=== PATIENT | female | born 1980 | race Caucasian/White ===

== ENCOUNTER 2018-09-13 08:10 | Inpatient (IN) | payer OTHER ==
[2018-09-13 08:13] VITALS: BMI 24.0
[2018-09-13] MEDS ORDERED: Sodium Chloride 0.9% 1,000 ML IV STA (08:26)
--- NOTE | 2018-09-13 08:33 | ED PDOC ---
HPI: Back Time Seen by Provider: 09/13/18 08:17 Chief Complaint (Nursing): Back Pain Chief Complaint (Provider): Abdominal Pain History Per: Patient History/Exam Limitations: no limitations Onset/Duration Of Symptoms: Days (x1) Current Symptoms Are (Timing): Still Present Additional Complaint(s): Parish Funes is a 38 year old female, with no significant PMHx, presenting for evaluation of sharp epigastric abdominal pain which radiates to the right shoulder since this morning. Patient denies any associated fevers, chills, vomiting, diarrhea, or urinary symptoms. Past Medical History Reviewed: Historical Data, Nursing Documentation, Vital Signs Vital Signs: Last Vital Signs Temp 98 F 09/13/18 08:13 Pulse 68 09/13/18 08:13 Resp 17 09/13/18 08:13 BP 121/76 09/13/18 08:13 Pulse Ox 100 09/13/18 08:13 - Medical History PMH: No Chronic Diseases - Surgical History Surgical History: No Surg Hx - Family History Family History: States: Unknown Family Hx - Home Medications Home Medications: Ambulatory Orders Medication Instructions Recorded No Known Home Med 09/13/18 - Allergies Allergies/Adverse Reactions: Allergies Allergy/AdvReac Type Severity Reaction Status Date / Time No Known Allergies Allergy Verified 09/13/18 08:19 Review of Systems ROS Statement: Except As Marked, All Systems Reviewed And Found Negative Constitutional: Negative for: Fever, Chills Gastrointestinal: Positive for: Abdominal Pain. Negative for: Nausea, Vomiting, Diarrhea Genitourinary Female: Negative for: Dysuria, Frequency, Incontinence, Hematuria Musculoskeletal: Positive for: Shoulder Pain Physical Exam - Reviewed Nursing Documentation Reviewed: Yes Vital Signs Reviewed: Yes - Physical Exam Appears: Positive for: Non-toxic, No Acute Distress Head Exam: Positive for: ATRAUMATIC, NORMAL INSPECTION, NORMOCEPHALIC Skin: Positive for: Normal Color, Warm, Dry. Negative for: Rash Eye Exam: Positive for: EOMI, Normal appearance, PERRL Neck: Positive for: Normal, Painless ROM, Supple Cardiovascular/Chest: Positive for: Regular Rate, Rhythm. Negative for: Murmur Respiratory: Positive for: Normal Breath Sounds. Negative for: Respiratory Di stress Gastrointestinal/Abdominal: Positive for: Soft, Tenderness (epigastric) Back: Positive for: Normal Inspection. Negative for: L CVA Tenderness, R CVA Tenderness, Vertebral Tenderness Extremity: Positive for: Normal ROM. Negative for: Pedal Edema, Deformity Neurologic/Psych: Positive for: Alert, Oriented. Negative for: Motor/Sensory Deficits - Laboratory Results Result Diagrams: 09/13/18 08:55 09/13/18 08:55 - ECG O2 Sat by Pulse Oximetry: 100 (RA) Pulse Ox Interpretation: Normal Medical Decision Making Medical Decision Making: Plan: Epigastric pain radiating to the right shoulder. Considering gastritis vs gallbladder disease vs pancreatitis. Will obtain labs and treat with IV fluids, Pepcid, and analgesics. Will consider gallbladder US pending labs. -EKG -CMP -Lipase -Upreg -CBC -Pepcid 20mg IVP -Morphine 2mg IVP -1L NS at 200 ml/hr -Reevaluation Time: 1003 [place] [address] abdomen to r/o gallstones, as well other pathologies related to pancreatitis. Will admit for NPO and pain management. -CT abdomen and pelvis w/ IV contrast -CXR -Morphine 4mg IVP -Admit to med/surg under the service of Dr. Rios Scribe Attestation: Documented by Jose Angel Lau, acting as a scribe for Roberto Esparza MD. Provider Scribe Attestation: All medical record entries made by the Scribe were at my direction and personally dictated by me. I have reviewed the chart and agree that the record accurately reflects my personal performance of the history, physical exam, medical decision making, and the department course for this patient. I have also personally directed, reviewed, and agree with the discharge instructions and disposition. Disposition - Clinical Impression Clinical Impression: Pancreatitis - Patient ED Disposition Is Patient to be Admitted: Yes - Disposition Disposition Time: 10:11 Condition: FAIR Forms: Eyelation (Thai) - Pt Status Changed To: Hospital Disposition Of: Inpatient - Admit Certification Admit to Inpatient:: After my assessment, the patient will require hospitaliza tion for at least two midnights. This is because of the severity of symptoms shown, intensity of services needed, and/or the medical risk in this patient being treated as an outpatient. - POA Present On Arrival: None
[2018-09-13] MEDS ORDERED: Morphine 4 MG/ML VIAL ONE ×2 (08:53→10:21)
[2018-09-13 09:05] LABS: BASO % 0.2 % (0.0-2.0); EOS # 0.1 K/uL (0.0-0.7); EOS % 0.8 % (0.0-4.0); LYMPH # 1.7 K/uL (1.0-4.3); LYMPH % 15.2 % (20.0-40.0); MEAN CELL VOLUME 77.5 fl (81.0-99.0); MEAN CORPUSCULAR HEMOGLOBIN 24.1 pg (27.0-31.0); MEAN CORPUSCULAR HGB CONC 31.1 g/dL (33.0-37.0); MEAN PLATELET VOLUME 8.3 fl (7.2-11.7); MONO # 0.6 K/uL (0.0-0.8); NEUT % 78.8 % (50.0-75.0); RBC 4.17 Mil/uL (3.80-5.20); RED CELL DISTRIBUTION WIDTH 15.7 % (11.5-14.5); WHITE BLOOD COUNT 11.5 K/uL (4.8-10.8)
[2018-09-13 09:14] LABS: ALB/GLOB RATIO 1.1 (1.0-2.1); ALBUMIN 3.9 g/dL (3.5-5.0); BLOOD UREA NITROGEN 12 mg/dl (7-17); CALCIUM 8.3 mg/dL (8.4-10.2); GFR NON-AFRICAN AMERICAN > 60
[2018-09-13 09:15] LABS: ALT/SGPT 24 U/L (9-52); AST/SGOT 40 U/L (14-36)
[2018-09-13 09:49] LABS: LIPASE 20792 U/L (23-300)
[2018-09-13] MEDS ORDERED: Iohexol 300 100 ML IJ ONE (10:17)
[2018-09-13] MEDS ORDERED: Sodium Chloride 0.9% 50 ML IV ONE (10:17)
[2018-09-13] MEDS: Lactated Ringer's 1,000 ML IV SCH ×4 (10:27→21:26)
[2018-09-13] MEDS ORDERED: Morphine 4 MG/ML VIAL IVP PRN (10:52)
[2018-09-13] MEDS ORDERED: Morphine 4 MG/ML VIAL IVP ONE (11:00)
--- NOTE | 2018-09-13 12:15 | RAD ---
Date of service: 09/13/2018 HISTORY: pancreatitis COMPARISON: 11/24/2010. FINDINGS: LUNGS: No active pulmonary disease. PLEURA: No significant pleural effusion identified, no pneumothorax apparent. CARDIOVASCULAR: No atherosclerotic calcification present Normal. OSSEOUS STRUCTURES: No significant abnormalities. VISUALIZED UPPER ABDOMEN: Normal. OTHER FINDINGS: None. IMPRESSION: No active disease. No significant interval change compared to the prior examination(s).
--- NOTE | 2018-09-13 12:26 | CT ---
Date of service: 09/13/2018 PROCEDURE: CT Abdomen and Pelvis with contrast HISTORY: Abdominal and back pain. COMPARISON: None. TECHNIQUE: Intravenous contrast dose: 95 cc Omnipaque 300. Radiation dose: Total exam DLP = 594.21 mGy-cm. Multiphasic study be foreign after administration of intravenous contrast. Coronal and sagittal reconstructed images. This CT exam was performed using one or more of the following dose reduction techniques: Automated exposure control, adjustment of the mA and/or kV according to patient size, and/or use of iterative reconstruction technique. FINDINGS: LOWER THORAX: Unremarkable. LIVER: Unremarkable. No gross lesion or ductal dilatation. GALLBLADDER AND BILE DUCTS: Unremarkable. PANCREAS: Diffuse edematous changes in the pancreas with peripancreatic fluid and inflammatory change. No evidence of necrotizing pancreatitis. No visible phlegmon. No identifiable gallstones or common duct stones. SPLEEN: Unremarkable. ADRENALS: Unremarkable. No mass. KIDNEYS AND URETERS: Unremarkable. No hydronephrosis. No solid mass. Incidental finding(s): Left renal cyst VASCULATURE: Unremarkable. No aortic aneurysm. No atherosclerotic calcification or mural plaque present. BOWEL: Constipation without fecal impaction or obstruction. APPENDIX: No abnormalities to suggest acute appendicitis. No right lower quadrant inflammatory processes identified. PERITONEUM: Trace pelvic fluid. Fluid in the retroperitoneum adjacent to the pancreas, right upper quadrant and outlining the anterior aspect of the right kidney. LYMPH NODES: Unremarkable. No enlarged lymph nodes. BLADDER: Unremarkable. REPRODUCTIVE: Unremarkable uterus. Deformed cyst left adnexa with contrast-enhancing characteristics of recently ruptured adnexal cyst. Trace free fluid identified in the pelvis/cul de sac. BONES: No acute fracture. OTHER FINDINGS: None. IMPRESSION: Diffuse/acute pancreatitis. No evidence of necrotizing pancreatitis. Additional benign and/or incidental findings described above. Communication of results: I discussed findings with the attending physician in the emergency department .
--- NOTE | 2018-09-13 12:45 | CP.PCM.HP ---
History of Present Illness - History of Present Illness History of Present Illness: 38 yo F with no significant medical history, admitted due to acute pancreatitis. She states pain started yesterday in epigastric region, and radiated to back and right shoulder. She took motrin overnight, but did not get much relief. No nausea, no vomiting, no chest pain or trouble breathing. States pain is sharp, and radiates to back and low abdomen, LLQ> RLQ. Med hx: none Surg hx: 1 , 2010 Fam hx: noncontributory Social hx: denies tobacco, drugs, alcohol use. 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 No evidence of necrotizing pancreatitis. Additional findings: Deformed cyst left adnexa with contrast enhancing characteristics of recently ruptured adnexal cyst. Trace free fluid identified in pelvis/cul de sac. Present on Admission - Present on Admission Any Indicators Present on Admission: No Review of Systems - Review of Systems All systems: reviewed and no additional remarkable complaints except Review of Systems: as per hpi Past Patient History - Past Social History Smoking Status: Never Smoked Alcohol: None Drugs: Denies - CARDIAC Hx Cardiac Disorders: No - PULMONARY Hx Respiratory Disorders: No - NEUROLOGICAL Hx Neurological Disorder: No - HEENT Hx HEENT Problems: No - RENAL Hx Chronic Kidney Disease: No - ENDOCRINE/METABOLIC Hx Endocrine Disorders: No - HEMATOLOGICAL/ONCOLOGICAL Hx Blood Disorders: No - INTEGUMENTARY Hx Dermatological Problems: No - MUSCULOSKELETAL/RHEUMATOLOGICAL Hx Musculoskeletal Disorders: No - GASTROINTESTINAL Hx Gastrointestinal Disorders: No - GENITOURINARY/GYNECOLOGICAL Hx Genitourinary Disorders: No - PSYCHIATRIC Hx Psychophysiologic Disorder: No Hx Substance Use: No - SURGICAL HISTORY Hx Surgeries: Yes Hx Section: Yes (X1) - ANESTHESIA Hx Anesthesia: Yes Hx Anesthesia Reactions: No Hx Malignant Hyperthermia: No Meds Allergies/Adverse Reactions: Allergies Allergy/AdvReac Type Severity Reaction Status Date / Time No Known Allergies Allergy Verified 09/13/18 08:19 Physical Exam - Constitutional Appears: No Acute Distress Additional comments: uncomfortable - Head Exam Head Exam: NORMAL INSPECTION - Eye Exam Eye Exam: Normal appearance. absent: Scleral icterus - ENT Exam ENT Exam: Mucous Membranes Moist - Respiratory Exam Respiratory Exam: Clear to Auscultation Bilateral, NORMAL BREATHING PATTERN. absent: Respiratory Distress - Cardiovascular Exam Cardiovascular Exam: REGULAR RHYTHM, +S1, +S2 - GI/Abdominal Exam GI & Abdominal Exam: Normal Bowel Sounds, Soft, Tenderness (epigastric, LLQ) Additional comments: no ecchymoses on flanks no periumbilical ecchymosis - Extremities Exam Extremities exam: Positive for: normal inspection. Negative for: calf tenderness - Back Exam Back exam: NORMAL INSPECTION. absent: CVA tenderness (L), CVA tenderness (R) - Neurological Exam Neurological exam: Alert - Psychiatric Exam Psychiatric exam: Normal Mood - Skin Skin Exam: Dry, Warm Results - Vital Signs Recent Vital Signs: Last Vital Signs Temp 98 F 09/13/18 08:13 Pulse 68 09/13/18 08:13 Resp 17 09/13/18 08:13 BP 121/76 09/13/18 08:13 Pulse Ox 100 09/13/18 10:11 - Labs Result Diagrams: 09/13/18 08:55 09/13/18 08:55 Labs: Laboratory Results - last 24 hr 09/13/18 09/13/18 08:55 08:55 WBC 11.5 H RBC 4.17 Hgb 10.0 L Hct 32.3 L MCV 77.5 L MCH 24.1 L MCHC 31.1 L RDW 15.7 H Plt Count 235 MPV 8.3 Neut % (Auto) 78.8 H Lymph % (Auto) 15.2 L [place] % (Auto) 5.0 Eos % (Auto) 0.8 Baso % (Auto) 0.2 Neut # (Auto) 9.0 H Lymph # (Auto) 1.7 [place] # (Auto) 0.6 Eos # (Auto) 0.1 Baso # (Auto) 0.0 Sodium 135 Potassium 4.2 Chloride 105 Carbon Dioxide 21 L Anion Gap 13 BUN 12 Creatinine 0.6 L Est GFR ( Amer) > 60 Est GFR (Non-Af Amer) > 60 Random Glucose 104 Calcium 8.3 L Total Bilirubin 0.7 AST 40 H ALT 24 Alkaline Phosphatase 112 Total Protein 7.5 Albumin 3.9 Globulin 3.6 Albumin/Globulin Ratio 1.1 Lipase 99848 H Assessment & Plan (1) Acute pancreatitis Status: Acute (2) Adnexal cyst Status: Acute - Assessment and Plan (Free Text) Plan: - Admitted to med surg - LR @ 250ml/hr - NPO - Pain control- morphine 2 mg Q4 PRN, 4 mg Q6 PRN - Lipid panel ordered - 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 Rhoades.
[2018-09-13 13:26] LABS: HDL CHOLESTEROL 47 MG/DL (30-70)
[2018-09-13 13:37] LABS: LDL CHOLESTEROL 120 mg/dL (0-129)
[2018-09-13] MEDS: Morphine 4 MG/ML VIAL IVP PRN (14:25)
--- NOTE | 2018-09-13 16:10 | US ---
Date of service: 09/13/2018 HISTORY: as per SUPPORT ASSOCIATE, f/u CT findings from 09/13 COMPARISON: CT abdomen and pelvis performed earlier the same day. TECHNIQUE: Transvaginal pelvic ultrasound was performed. FINDINGS: UTERUS: Measures 7.5 x 6.9 x 4.3 cm. Anteverted, normal in size and appearance. No fibroid or other mass lesion seen. ENDOMETRIUM: Measures 8.1 mm in diameter. Unremarkable. CERVIX: No cervical abnormality identified. RIGHT OVARY: Measures 4.5 x 2.2 x 1.7 cm. No solid mass. Normal flow. LEFT OVARY: Measures 3.4 x 3.3 x 2.9 cm. No solid mass. Normal flow. There is a 1.5 x 2.0 x 1.5 cm convoluted complicated cyst. FREE FLUID: There is a small amount of fluid in the cul de sac. OTHER FINDINGS: None. IMPRESSION: Convoluted in complicated cyst in the left ovary and free fluid in the cul de sac likely related to recent rupture of the cyst.
--- NOTE | 2018-09-13 19:39 | CARD ---
APPROVED REPORT Date of service: 09/13/2018 EKG Measurement Heart [id number] <Conclusion> Normal sinus rhythm with sinus arrhythmia Normal ECG
[2018-09-14] MEDS: Lactated Ringer's 1,000 ML IV SCH ×5 (01:51→22:00)
[2018-09-14] MEDS: Morphine 4 MG/ML VIAL IVP PRN (01:52)
[2018-09-14 06:30] LABS: BASO % 0.2 % (0.0-2.0); EOS % 0.5 % (0.0-4.0); HEMOGLOBIN 9.4 g/dL (12.0-16.0); LYMPH # 1.5 K/uL (1.0-4.3); LYMPH % 16.4 % (20.0-40.0); MEAN CELL VOLUME 78.5 fl (81.0-99.0); MEAN CORPUSCULAR HEMOGLOBIN 24.6 pg (27.0-31.0); MEAN CORPUSCULAR HGB CONC 31.3 g/dL (33.0-37.0); MEAN PLATELET VOLUME 8.3 fl (7.2-11.7); MONO # 0.6 K/uL (0.0-0.8); MONO % 6.6 % (0.0-10.0); NEUT % 76.3 % (50.0-75.0); RBC 3.84 Mil/uL (3.80-5.20); RED CELL DISTRIBUTION WIDTH 15.5 % (11.5-14.5); WHITE BLOOD COUNT 9.1 K/uL (4.8-10.8)
[2018-09-14 06:55] LABS: ALB/GLOB RATIO 1.1 (1.0-2.1); ALBUMIN 3.4 g/dL (3.5-5.0); ALT/SGPT 14 U/L (9-52); AST/SGOT 17 U/L (14-36); BLOOD UREA NITROGEN 6 mg/dl (7-17); CALCIUM 8.7 mg/dL (8.4-10.2); GFR NON-AFRICAN AMERICAN > 60
[2018-09-14 10:54] LABS: LIPASE 7697 U/L (23-300)
--- NOTE | 2018-09-14 12:33 | US ---
Date of service: 09/14/2018 HISTORY: pancreatitis COMPARISON: None. TECHNIQUE: Sonographic evaluation of the abdomen. FINDINGS: LIVER: Measures 16.9 cm. Normal echogenicity of the liver parenchyma. No mass. No intrahepatic bile duct dilatation. GALLBLADDER: Unremarkable. No gallstones. COMMON BILE DUCT: Measures 4 mm. No stones. No dilatation. PANCREAS: Unremarkable as visualized. No mass. No ductal dilatation. RIGHT KIDNEY: Measures 9.8cm. Normal echogenicity. No calculus, mass, or hydronephrosis. LEFT KIDNEY: Measures 10.1cm. Normal echogenicity. No calculus or hydronephrosis. Upper pole simple cortical cyst, 1.4 x 1.4 x 1.6 cm. No solid mass. SPLEEN: Normal in size and contour. No mass. AORTA: No aneurysmal dilatation. IVC: Unremarkable. OTHER FINDINGS: None. IMPRESSION: 1.6 cm left upper pole renal cortical cyst. Otherwise unremarkable examination. No sonographic evidence of acute pancreatitis.
--- NOTE | 2018-09-14 13:00 | CP.PCM.PN ---
Subjective - Date & Time of Evaluation Date of Evaluation: 09/14/18 Time of Evaluation: 10:20 - Subjective Subjective: Pt seen/eval at bedside with Dr. Rhoades. No acute events overnights, still has been NPO. Pain has subsided, alleviated with medication. at bedside. Objective - Vital Signs/Intake and Output Vital Signs (last 24 hours): Temp Pulse Resp BP Pulse Ox 99.4 F 81 19 111/71 98 09/14/18 07:59 09/14/18 07:59 09/14/18 07:59 09/14/18 07:59 09/14/18 07:59 - Medications Medications: Current Medications Lactated Ringer's (Lactated Ringer's) 1,000 mls @ 200 mls/hr IV .Q5H [facility] Last Admin: 09/14/18 07:17 Dose: 200 mls/hr Morphine Sulfate (Morphine) 2 mg IVP Q4 PRN PRN Reason: Pain, moderate (4-7) Last Admin: 09/14/18 01:52 Dose: 2 mg Morphine Sulfate (Morphine) 4 mg IVP Q6 PRN PRN Reason: Pain, severe (8-10) Ondansetron HCl (Zofran Inj) 4 mg IVP Q6 PRN PRN Reason: Nausea/Vomiting Last Admin: 09/14/18 01:57 Dose: 4 mg Pantoprazole Sodium (Protonix Inj) 40 mg IVP DAILY [facility] Last Admin: 09/14/18 08:57 Dose: 40 mg - Labs Labs: 09/14/18 05:40 09/14/18 05:40 - Constitutional Appears: No Acute Distress - Head Exam Head Exam: NORMAL INSPECTION - Eye Exam Eye Exam: Normal appearance. absent: Scleral icterus - ENT Exam ENT Exam: Mucous Membranes Moist - Respiratory Exam Respiratory Exam: Clear to Ausculation Bilateral, NORMAL BREATHING PATTERN - Cardiovascular Exam Cardiovascular Exam: REGULAR RHYTHM, +S1, +S2 - GI/Abdominal Exam GI & Abdominal Exam: Soft, Tenderness (milder) - Extremities Exam Extremities Exam: Normal Inspection. absent: Calf Tenderness - Back Exam Back Exam: NORMAL INSPECTION - Neurological Exam Neurological Exam: Alert, Oriented x3 - Psychiatric Exam Psychiatric exam: Normal Mood - Skin Skin Exam: Normal Color, Warm Assessment and Plan (1) Acute pancreatitis Status: Acute (2) Adnexal cyst Status: Acute - Assessment and Plan (Free Text) Plan: - Advance diet to clear liquid - GI consult- Dr. 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
--- NOTE | 2018-09-14 22:25 | CP.PCM.CON ---
Past Patient History - Past Medical History & Family History Past Medical History?: No - Past Social History Smoking Status: Never Smoked Alcohol: None Drugs: Denies - CARDIAC Hx Cardiac Disorders: No - PULMONARY Hx Respiratory Disorders: No - NEUROLOGICAL Hx Neurological Disorder: No - HEENT Hx HEENT Problems: No - RENAL Hx Chronic Kidney Disease: No - ENDOCRINE/METABOLIC Hx Endocrine Disorders: No - HEMATOLOGICAL/ONCOLOGICAL Hx Blood Disorders: No - INTEGUMENTARY Hx Dermatological Problems: No - MUSCULOSKELETAL/RHEUMATOLOGICAL Hx Musculoskeletal Disorders: No - GASTROINTESTINAL Hx Gastrointestinal Disorders: No - GENITOURINARY/GYNECOLOGICAL Hx Genitourinary Disorders: No - PSYCHIATRIC Hx Psychophysiologic Disorder: No Hx Substance Use: No - SURGICAL HISTORY Hx Surgeries: Yes Hx Section: Yes (X1) - ANESTHESIA Hx Anesthesia: Yes Hx Anesthesia Reactions: No Hx Malignant Hyperthermia: No Meds Allergies/Adverse Reactions: Allergies Allergy/AdvReac Type Severity Reaction Status Date / Time No Known Allergies Allergy Verified 09/13/18 08:19 - Medications Medications: Current Medications Lactated Ringer's (Lactated Ringer's) 1,000 mls @ 200 mls/hr IV .Q5H [facility] Last Admin: 09/14/18 17:21 Dose: 200 mls/hr Morphine Sulfate (Morphine) 2 mg IVP Q4 PRN PRN Reason: Pain, moderate (4-7) Last Admin: 09/14/18 01:52 Dose: 2 mg Morphine Sulfate (Morphine) 4 mg IVP Q6 PRN PRN Reason: Pain, severe (8-10) Ondansetron HCl (Zofran Inj) 4 mg IVP Q6 PRN PRN Reason: Nausea/Vomiting Last Admin: 09/14/18 01:57 Dose: 4 mg Pantoprazole Sodium (Protonix Inj) 40 mg IVP DAILY [facility] Last Admin: 09/14/18 08:57 Dose: 40 mg Results - Vital Signs Recent Vital Signs: Last Vital Signs Temp 99 F 09/14/18 16:18 Pulse 89 09/14/18 16:18 Resp 18 09/14/18 16:18 BP 98/64 L 09/14/18 16:18 Pulse Ox 99 09/14/18 16:18 - Labs Result Diagrams: 09/14/18 05:40 09/14/18 05:40 Labs: Laboratory Results - last 24 hr 09/14/18 09/14/18 05:40 05:40 WBC 9.1 RBC 3.84 Hgb 9.4 L Hct 30.1 L MCV 78.5 L MCH 24.6 L MCHC 31.3 L RDW 15.5 H Plt Count 228 MPV 8.3 Neut % (Auto) 76.3 H Lymph % (Auto) 16.4 L [place] % (Auto) 6.6 Eos % (Auto) 0.5 Baso % (Auto) 0.2 Neut # (Auto) 7.0 Lymph # (Auto) 1.5 [place] # (Auto) 0.6 Eos # (Auto) 0.0 Baso # (Auto) 0.0 Sodium 134 Potassium 3.7 Chloride 102 Carbon Dioxide 26 Anion Gap 10 BUN 6 L Creatinine 0.6 L Est GFR ( Amer) > 60 Est GFR (Non-Af Amer) > 60 Random Glucose 91 Calcium 8.7 Total Bilirubin 0.9 AST 17 ALT 14 Alkaline Phosphatase 109 Total Protein 6.6 Albumin 3.4 L Globulin 3.2 Albumin/Globulin Ratio 1.1 Lipase 7697 H
--- NOTE | 2018-09-14 23:28 | CON ---
DATE: 09/14/2018 HISTORY OF PRESENT ILLNESS: This is a 38-year-old G2, P2-0-0-2, last menstrual period on 08/24/2018, who was admitted to the hospital yesterday with the diagnosis of pancreatitis and was found on CT scan to have a deformed cyst in the left adnexa with contrast enhancing characteristics of recently ruptured adnexal cyst and trace free fluid was identified in the pelvis/cul-de-sac. A transvaginal ultrasound was recommended to be ordered and that revealed a convoluted, complicated cyst in the left ovary and free fluid in the cul-de-sac likely related to recent rupture of the cyst. The left ovary has a 1.5 x 2 x 1.5 cm convoluted, complicated cyst and there is a small amount of fluid in the cul-de-sac. The patient reports that she had cramps with her last period, although she does not usually have cramps. The patient reports that she used to see Dr. 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 PAST MEDICAL HISTORY: Healthy. PAST SURGICAL HISTORY: x1. MEDICATIONS: The patient is receiving LR, morphine sulfate as needed, Zofran as needed, and pantoprazole daily. Of note, the patient took Motrin when she was having pain before going to the hospital. ALLERGIES: NO KNOWN DRUG ALLERGIES. FAMILY HISTORY: Noncontributory. SOCIAL HISTORY: The patient denies tobacco, alcohol, and illicit drug use. GYNECOLOGICAL HISTORY: Menarche at 13, regular periods. The patient denies any history of any STD's or any abnormal Pap smears. OB HISTORY: In 2006, she underwent a vaginal delivery of a female infant weighing 6 pounds plus and in 2010, she underwent a section of a male infant, who weighed over 10 pounds. PHYSICAL EXAMINATION: VITAL SIGNS: Afebrile, vital signs stable. GENERAL: The patient appears comfortable, lying in bed. HEART: Regular rate and rhythm. LUNGS: Clear to auscultation bilaterally. ABDOMEN: Mild bowel sounds, soft, nontender. GENITOURINARY: Vaginal exam was deferred. LABORATORY DATA: The patient's white count was 11.5 yesterday and has gone down to 9.1 today, hemoglobin is 9.4. Of note, lipase was 20,792 yesterday and has gone down to 7697. IMAGING: As above. ASSESSMENT AND PLAN: This is a 38-year-old 2, para 2-0-0-2, last menstrual period on 08/24/2018, who was admitted to [facility] for pancreatitis and is noted to have an incidental finding on her CT scan and ultrasound that is likely a small corpus luteal cyst that may have ruptured. I explained the findings to the patient and her . I have recommended that the patient follow up with a clam grader. She prefers a female provider. The patient was given my name and number. I also gave her information regarding Drs. Talya Camacho and Dr. Luz Maria Piper. Cesar Mccall MD MTDIrene
[2018-09-15] MEDS: Lactated Ringer's 1,000 ML IV SCH (03:00)
[2018-09-15 08:37] LABS: BASO % 0.3 % (0.0-2.0); EOS # 0.1 K/uL (0.0-0.7); EOS % 1.4 % (0.0-4.0); HEMOGLOBIN 9.1 g/dL (12.0-16.0); LYMPH % 11.6 % (20.0-40.0); MEAN CELL VOLUME 76.6 fl (81.0-99.0); MEAN CORPUSCULAR HEMOGLOBIN 24.6 pg (27.0-31.0); MEAN CORPUSCULAR HGB CONC 32.1 g/dL (33.0-37.0); MEAN PLATELET VOLUME 8.2 fl (7.2-11.7); MONO # 0.5 K/uL (0.0-0.8); MONO % 6.4 % (0.0-10.0); NEUT # 6.8 K/uL (1.8-7.0); NEUT % 80.3 % (50.0-75.0); RBC 3.72 Mil/uL (3.80-5.20); RED CELL DISTRIBUTION WIDTH 15.4 % (11.5-14.5); WHITE BLOOD COUNT 8.4 K/uL (4.8-10.8)
[2018-09-15 08:57] LABS: ALBUMIN 3.4 g/dL (3.5-5.0); ALT/SGPT 20 U/L (9-52); AST/SGOT 16 U/L (14-36); BLOOD UREA NITROGEN 5 mg/dl (7-17); CALCIUM 8.9 mg/dL (8.4-10.2); GFR NON-AFRICAN AMERICAN > 60
[2018-09-15 17:18] VITALS: BP 116/75; PULSE 85; RESP 18; TEMP 98.8; O2SAT 99
--- NOTE | 2018-09-17 08:39 | CON ---
DATE: 09/14/2018 REFERRING PHYSICIAN: Fabiano Rhoades MD REASON FOR CONSULTATION: Abdominal pain. HISTORY OF PRESENT ILLNESS: This is a 38-year-old female with significantly past medical history, comes in especially for abdominal pain and discomfort since yesterday. Some nausea and vomiting which is resolving for food. Pain today improving, but there lying is a bit uncomfortable, otherwise no apparent distress. PAST MEDICAL HISTORY: As above. PAST SURGICAL HISTORY: As above. MEDICATIONS: Have been reviewed. REVIEW OF SYSTEMS: All other systems have been reviewed and negative apart from the HPI. PHYSICAL EXAMINATION: VITAL SIGNS: Here in the hospital, grossly unremarkable. GENERAL: This is a pleasant middle-aged female, lying comfortably in bed, in no apparent distress. HEENT: Head, normocephalic and atraumatic. Eyes, pupils are equally reactive to light bilaterally. There is no conjunctival icterus, no pallor. NECK: Supple. Normal range of motion. No lymphadenopathy appreciated. LUNGS: Coarse breath sounds bilaterally. HEART: S1 and S2, regular rate and rhythm. No murmurs appreciated. ABDOMEN: Soft and nontender. Bowel sounds present. Some discomfort in the epigastric region. RECTAL: Deferred. EXTREMITIES: Pulses present bilaterally. SKIN: Warm, dry, and intact. NEUROLOGIC: Alert and oriented x3. LABORATORY DATA: All labs and radiology have been reviewed. WBC is , hemoglobin 9.4 and stable, platelet count 228, lipase is normal at 20,000. CAT scan shows diffuse pancreatitis and a complicated cyst in the left ovary. ASSESSMENT AND PLAN: This is a 38-year-old female with pancreatitis and ovarian cyst rupture. From gastroenterology standpoint, markedly elevated. I am unclear whether this is a complication of the ruptured cyst or return to pancreatitis. I have ordered an ultrasound to rule out gallstones from gastroenterology standpoint. I will also order an ultrasound of the gallbladder if pain is improved , advance diet as tolerated. Gynecology consult appreciated. Thank you for the consult. Ranjith Kendall MD/ PhD cc: Fabiano Rhoades MD [facility] # [id number]
== END 2018-09-15 18:08 | disposition home or self-care (01) | DRG 440 ==
LOC: H.ER 08:10 → H.ERHOLD 10:04 → H.MEDSURG1 12:40
PROVIDERS: ADMIT Family Medicine; ATTEND Family Medicine
DX: K85.90 Acute pancreatitis without necrosis or infection, unspecified (principal); N83.10 Corpus luteum cyst of ovary, unspecified side